=== PATIENT | male | born 1965 | race Caucasian/White ===

== ENCOUNTER 2018-12-06 13:21 | Emergency (ER) | payer OTHER, SELFPAY ==
[2018-12-06 13:22] VITALS: BP 124/77; PULSE 75; RESP 14; TEMP 37.1; O2SAT 100; BMI 24.4
--- NOTE | 2018-12-06 13:22 | ED_ITS ---
HPI - General Adult General Chief complaint: Extremity Injury, Lower Stated complaint: Stepped off curb Rt ankle Time Seen by Provider: 12/06/18 13:22 Source: patient Mode of arrival: ambulatory Limitations: no limitations History of Present Illness HPI narrative: 53-year-old male here for evaluation of right ankle injury. States that just prior to arrival he stepped off the curb while at work. Has swelling on the outside. Has had pain with ambulation since then. Related Data Previous Rx's Medication Instructions Recorded lisinopril 20 mg tablet 20 mg PO QDAY #90 tab 04/15/18 simvastatin 20 mg tablet 20 mg PO HS #90 tab 05/23/18 Allergies Allergy/AdvReac Type Severity Reaction Status Date / Time No Known Drug Allergies Allergy Verified 12/06/18 13:26 Review of Systems Musculoskeletal Comments: Right ankle pain Integumentary/Breasts Comments: Swelling to lateral part of right ankle Neurologic Comments: No tingling to right foot Hematologic/Lymphatic Denies easy bleeding and Denies easy bruising PFSH Medical History Hyperlipemia (Chronic ~2017) Hypertension (Chronic ~2017) Hx of tooth extraction (Resolved 1991) Kidney stones (Resolved 1991) Pneumothorax (Resolved 1989) Surgical History (Updated 01/18/18 @ 16:34 by Shena Mcintosh LPN) Hx of surgical procedure (Resolved Unknown) Family History (Updated 10/14/17 @ 00:00 by Conversion Provider) Father Age: 84 Hypertension High cholesterol Mother Age: 78 Cancer Social History (Updated 12/06/18 @ 13:25 by Sekou Poole DO) lives independently: Yes Smoking Status: Unknown if ever smoked Family History (Updated 10/14/17 @ 00:00 by Conversion Provider) Father Age: 84 Hypertension High cholesterol Mother Age: 78 Cancer Social History (Updated 12/06/18 @ 13:25 by Sekou Poole DO) lives independently: Yes Smoking Status: Unknown if ever smoked Exam Initial Vital Signs Initial Vital Signs: Vital Signs Temperature 98.7 F 12/06/18 13:22 Pulse Rate 75 12/06/18 13:22 Respiratory Rate 14 12/06/18 13:22 Blood Pressure 124/77 12/06/18 13:22 Pulse Oximetry 100 12/06/18 13:22 Resp Effort & Inspection: normal respiratory effort Cardio Pulses: dorsalis pedis present on the right Skin Other: Swelling to the lateral aspect her right ankle. No breaks in the skin Extrem Other: No proximal fibular tenderness. Does have swelling and tenderness along the lateral malleolus. Minimal medial side tenderness. No tenderness along the Achilles tendon. Foot unremarkable. Procedures Orthopedic Splinting/Casting Injury #1: Side: right Lower Extremity Injury Location: ankle Lower Extremity Immobilizer: Tejas wrap Other Orthopedic Equipment: crutches Post splinting neuro exam: intact Post splinting vascular exam: intact Placed by: Nursing Course Orders Ordered: ED Orders 12/06/18 13:24 XR ankle RT min 3V Stat Vital Signs - 8 hr 12/06/18 13:22 Temperature 98.7 F Pulse Rate 75 Respiratory Rate 14 Blood Pressure 124/77 Pulse Oximetry 100 Medical Decision Making Imaging Data Ankle x-ray: Radiologist's impression: [address] [address] XRay Report Signed Patient: Bright Eubanks KMR#: [id number] : 1965Acct:[id number] Age/Sex: 53 / MDate of Service: 12/06/18 Loc: ED Accession Number: [id number] Procedure: XR ankle RT min 3V Ordering Provider: Sekou Poole D.O. PROCEDURE: XR ANKLE RT MIN 3V INDICATIONS: right ankle Lateral side pain after stepping off curb TECHNIQUE: 3 views of the ankle were acquired. COMPARISON: None. FINDINGS: Bones: No fractures or dislocations. Ankle mortise is normally aligned. No suspicious bony lesions. Calcaneal bone spur. Accessory ossicle noted adjacent to the lateral malleolus. Soft tissues: No tibiotalar joint effusion. Achilles tendon appears normal. Lateral soft tissue swelling is noted and ligamentous injury cannot be excluded. IMPRESSION: No fracture. No acute osseous lesion. If symptoms and/or clinical suspicion for pathology persists, further assessment with repeat radiographs (7-10 days) or advanced imaging (e.g. CT, MRI or bone scan) may be helpful. Dictated by: Kiah Jose MD, PhD on 12/06/2018 at 13:44 Approved by: Kiah Jose MD, PhD on 12/06/2018 at 13:44 [facility] Narrative Medical decision making narrative: Neurovascularly intact. No fractures on the x-ray. We did discussed rice treatment. Did discuss return precautions and follow-up instructions. Patient expressed understanding and agreement plan. Discharge Plan Departure Patient Disposition: Home Clinical Impression: Ankle sprain Qualifiers: Encounter type: initial encounter Involved ligament of ankle: other ligament Laterality: right Qualified Code(s): S93.491A - Sprain of other ligament of right ankle, initial encounter Instructions: How to Use Crutches, Ankle Sprain, How To Perform RICE (Rest, Ice, Compress, Elevate) Activity Restrictions/Additional Instructions: Keep your ankle elevated. Use the crutches as needed. There is no fracture on the x-ray so you can put weight on your ankle like we discussed. Take Tylenol/ibuprofen for any pain. Return to the emergency department for any new or worsening symptoms Prescriptions: No Action lisinopril 20 mg tablet 20 mg PO QDAY Qty: 90 RF: 3 simvastatin 20 mg tablet 20 mg PO HS Qty: 90 RF: 1
== END 2018-12-06 14:06 | disposition home or self-care (01) ==
PROVIDERS: Emergency Provider Emergency Medicine
DX: S93.491A Sprain of other ligament of right ankle, initial encounter (principal); Y99.0 Civilian activity done for income or pay
CPT/HCPCS: 73610; 99283

== ENCOUNTER → 2020-11-20 10:55 | Outpatient (CLI) | payer OTHER, SELFPAY ==
--- NOTE | 2020-11-20 10:58 | DI.RAD.S_ITS ---
PROCEDURE: XR LUMBAR SPINE MIN 4V INDICATIONS: BACK PAIN' TECHNIQUE: 5 views of the lumbar spine were acquired, including bilateral oblique views. COMPARISON: None. FINDINGS: Bones: No acute fracture identified. Multilevel degenerative endplate sclerosis and spurring. Diffuse facet arthropathy. Mild narrowing of the L5-S1 disc space. Mild lower thoracic spondylosis. Soft tissues: Overlying bowel gas pattern is normal. No suspicious soft tissue calcifications. Oblique images: No pars defects. IMPRESSION: Mild spondylosis and facet arthropathy Dictated by: Vamshi Arriaga M.D. on 11/20/2020 at 11:50 Approved by: Vamshi Arriaga M.D. on 11/20/2020 at 11:51
== END ==
PROVIDERS: Referring Provider Chiropractor; Visit Provider Chiropractor
DX: M99.03 Segmental and somatic dysfunction of lumbar region (principal); M54.5 Low back pain; M47.814 Spondylosis without myelopathy or radiculopathy, thoracic region; M48.07 Spinal stenosis, lumbosacral region
CPT/HCPCS: 72110